=== PATIENT | female | born 1995 | race Caucasian/White ===

== ENCOUNTER 2025-04-17 16:50 | Emergency (ER) | payer OTHER ==
[~2025-04-17] VITALS: Ht 152.4 cm; Wt 54.5 kg
[2025-04-17 17:18] LABS: BASOPHILS 0.3 % (0.1-1.2); EOSINOPHILS 0.7 % (0.7-5.8); HEMATOCRIT 40.2 % (34.1-44.9); HEMOGLOBIN 13.4 g/dL (11.2-15.7); LYMPHOCYTES 9.1 % (19.3-51.7); MCH 27.9 PG (25.6-32.2); MCHC 33.3 g/dL (32.2-35.5); MCV 83.6 fL (79.4-94.8); MONOCYTES 2.3 % (4.7-12.5); NEUTROPHILS 87.3 % (34.0-71.1); PLATELET COUNT 365 K/uL (182-369); RBC 4.81 M/uL (3.93-5.22)
[2025-04-17 17:54] LABS: ALBUMIN 4.1 g/dL (3.4-5.0); ALBUMIN/GLOBULIN RATIO 1.24 (1.1-2.4); ANION GAP 12.8 (7-21); BILIRUBIN, TOTAL 0.7 mg/dL (0.2-1.0); BUN/CREATININE RATIO 11.26 (6.0-28.6); CALCIUM 9.3 mg/dL (8.5-10.1); CREATININE, SERUM 0.71 mg/dL (0.55-1.02); POTASSIUM 3.8 mmol/L (3.5-5.1); PROTEIN, TOTAL 7.4 g/dL (6.4-8.2)
[2025-04-17 19:19] VITALS: BP 125/78
== END 2025-04-17 19:17 | disposition home or self-care (01) ==
LOC: ED 16:50
PROVIDERS: Emergency Medicine
DX: O99.891 Other specified diseases and conditions complicating pregnancy (principal); R10.9 Unspecified abdominal pain; Z3A.08 8 weeks gestation of pregnancy; Z88.8 Allergy status to other drugs, medicaments and biological substances; Z88.2 Allergy status to sulfonamides
CPT/HCPCS: 36415; 76801; 80053; 84702; 85025; 99284-25

== ENCOUNTER 2025-08-25 17:28 | Emergency (ER) | payer OTHER ==
[~2025-08-25] VITALS: Ht 162.6 cm; Wt 58.2 kg
[2025-08-25] MEDS ORDERED: CEPHALEXIN500 M1 PO (20:11)
[2025-08-25 20:41] VITALS: BP 140/101
[2025-08-25] MEDS ORDERED: CEPHALEXIN MONOHYDRATE 500 MG HOME.PACK PO ONE (20:45)
== END 2025-08-25 20:42 | disposition home or self-care (01) ==
LOC: ED 17:28
DX: O23.41 Unspecified infection of urinary tract in pregnancy, first trimester (principal); N39.0 Urinary tract infection, site not specified; O99.891 Other specified diseases and conditions complicating pregnancy; F12.10 Cannabis abuse, uncomplicated; Z3A.01 Less than 8 weeks gestation of pregnancy
CPT/HCPCS: 99283; A9270

== ENCOUNTER 2025-08-26 15:57 | Emergency (ER) | payer OTHER ==
[~2025-08-26] VITALS: Ht 162.6 cm; Wt 56.7 kg
[~2025-08-26 15:57] MED LIST: CEPHALEXIN500 M1 PO
--- OUTSIDE RECORDS SUMMARY | 2025-08-26 16:04 | XMS ---
PreManage Notification: ARPITA MEIER [employer] Events No recent Security Events currently on file CRITERIA MET - [facility] - 2 Visits in 30 Days CARE PROVIDERS -Binta- Dentist: Audio Visual Director [facility] PHONE: [phone] MICHELLE TAVERA Physician Health Diagnostics Teacher: Medical Current PHONE: [phone] [facility]: [facility]> PHONE: [phone] FITO RAMIREZ [facility] Current PHONE: Unknown Pamela has no Care Guidelines for this patient. Evelyn VISIT COUNT (12 MO.) 3 MERT Nascimento [facility] TOTAL 4 NOTE: Visits indicate total known visits. ED/UCC VISIT TRACKING (12 MO.) 08/26/2025 15:57 [facility] [place] TYPE: Emergency COMPLAINT: - WEAKNESS 08/25/2025 17:29 [facility] [place] TYPE: Emergency COMPLAINT: - MEDICAL CLEARENCE 06/02/2025 18:00 [facility] [place] TYPE: Emergency DIAGNOSES: - Antepartum hemorrhage, unspecified, second trimester - VAGINAL BLEEDING; 04/17/2025 16:51 [facility] [place] TYPE: Emergency COMPLAINT: - MEDICAL CLEARANCE DIAGNOSES: - 8 weeks gestation of - Allergy status to other drugs, medicaments and biological substances - Allergy status to sulfonamides - Other specified diseases and conditions complicating - Unspecified abdominal pain INPATIENT VISIT TRACKING (12 MO.) No inpatient visits to display in this time frame [email or web address]
[2025-08-26 16:28] VITALS: BP 128/90
== END 2025-08-26 16:35 | disposition home or self-care (01) ==
LOC: ED 15:57
DX: Z34.02 Encounter for supervision of normal first pregnancy, second trimester (principal); Z3A.00 Weeks of gestation of pregnancy not specified; Z88.2 Allergy status to sulfonamides; Z91.018 Allergy to other foods; Z79.2 Long term (current) use of antibiotics
CPT/HCPCS: 99283